=== PATIENT | female | born 1985 | race Two or more races ===

== ENCOUNTER 2017-11-13 17:39 | Emergency (ER) | payer MEDICAID, OTHER ==
[~2017-11-13] VITALS: Ht 154.9 cm; Wt 109.3 kg
[~2017-11-13 17:39] MED LIST: CEPH500C; NITR100C6; ONDANSETRON; PHENAZOPYRID
[2017-11-13 19:16] LABS: Basophils # (auto) 0.1 uL; Basophils % (auto) 0.8 % (0.0-2.0); Eosinophils # (auto) 0.1 uL; Eosinophils % (auto) 0.8 % (0.0-7.0); Hematocrit 37.6 % (36.0-46.0); Hemoglobin 12.4 g/dL (12.2-16.2); Lymphocytes # (auto) 2.5 uL; Lymphocytes % (auto) 22.2 % (10.0-50.0); Mean Corpuscular Hemoglobin 27.9 pg (28.0-32.0); Mean Corpuscular Hgb Conc. 32.9 g/dL (32.0-36.0); Mean Corpuscular Volume 84.8 fL (80.0-100.0); Neutrophils # (auto) 7.7 uL; Neutrophils % (auto) 67.2 % (37.0-80.0); Platelet Count (auto) 300 10^3/uL (140-450); Red Blood Cells 4.43 10^6/uL (4.0-5.20); Red Cell Distribution Width 14.6 % (11.8-14.3); White Blood Cell 11.5 10^3/uL (4.4-10.8)
[2017-11-13 19:25] LABS: Albumin 2.9 g/dL (3.4-5.0); BUN/Creatinine Ratio 16.9; Calcium 8.5 mg/dL (8.5-10.1); Potassium 3.7 mmol/L (3.5-5.1)
[2017-11-13 19:27] LABS: Bilirubin, Total 0.2 mg/dL (0.2-1.0); Total Protein 7.3 g/dL (6.4-8.2)
[2017-11-13 20:57] LABS: Urine Bacteria FEW /hpf (None Seen); Urine Blood Negative /uL (Negative); Urine Specific Gravity 1.012 (1.001-1.035); Urine WBC 1 /hpf (0 - 5)
[2017-11-14 04:46] VITALS: BP 122/77
== END 2017-11-14 01:20 | disposition left against medical advice (07) ==
LOC: ER 17:54
DX: O20.9 Hemorrhage in early pregnancy, unspecified (principal); Z3A.11 11 weeks gestation of pregnancy; Z53.21 Procedure and treatment not carried out due to patient leaving prior to being seen by health care provider
CPT/HCPCS: 36415; 76801; 80053; 81001; 84702; 85025

== ENCOUNTER 2020-02-21 14:27 | Inpatient (IN) | payer MEDICAID ==
[~2020-02-21] VITALS: Ht 165.1 cm; Wt 98.0 kg
[2020-02-21] MEDS ORDERED: ZINC SULFATE 220mg CAP or TAB PO ONE (14:45)
[2020-02-21] MEDS ORDERED: ASCORBIC ACID 500 MG TAB PO ONE (14:45)
[2020-02-21] MEDS ORDERED: PANTOPRAZOLE 40 MG/10 ML VIAL INJ IV ONE (14:45)
[2020-02-21] MEDS ORDERED: ACETAMINOPHEN 325 MG TAB PO ONE (14:45)
[2020-02-21] MEDS ORDERED: AZITHROMYCIN 500MG/ 250ML 250 ML IV ONE (14:45)
[2020-02-21] MEDS ORDERED: methylPREDNISolone SOD SUCC 125 MG/2 ML VL IV ONE (14:45)
[2020-02-21] MEDS ORDERED: ENOXAPARIN SOD 100 MG/1 ML SYRINGE SC ONE (15:00)
[2020-02-21 15:49] LABS: Albumin 3.3 g/dL (3.4-5.0); Anion Gap 9 (5-15); Blood Urea Nitrogen 8 mg/dL (7-18); Calcium 8.5 mg/dL (8.5-10.1); Carbon Dioxide 26 mmol/L (21-32); Chloride 97 mmol/L (98-107); Glucose 114 mg/dL (74-106); Potassium 3.7 mmol/L (3.5-5.1); Sodium 132 mmol/L (136-145)
[2020-02-21 15:51] LABS: Alanine Aminotransferase 76 U/L (13-56); Aspartate Aminotransferase 69 U/L (15-37); BUN/Creatinine Ratio 10.8; GFR African American 115 mL/min; GFR Non-African American 95 mL/min
[2020-02-21 15:59] LABS: Alkaline Phosphatase 66 U/L (45-117); Bilirubin, Total 0.5 mg/dL (0.2-1.0); Lactate Dehydrogenase 273 U/L (84-246); Total Protein 8.7 g/dL (6.4-8.2)
[2020-02-21] MEDS ORDERED: MORPHINE SULF INJ 2 MG/ML SYRINGE 1ML IV PRN ×3 (16:45→20:30)
[2020-02-21] MEDS ORDERED: NITROGLYCERIN 0.4 MG SL TAB SL PRN ×2 (16:45→20:30)
[2020-02-21 17:13] LABS: Basophils # (auto) 0 10 ^3/uL (0-0.2); Basophils % (auto) 0.2 % (0.0-2.0); Eosinophils # (auto) 0 10 ^3/uL (0-0.8); Lymphocytes # (auto) 1.5 10 ^3/uL (0.4-5.4); Monocytes # (auto) 0.5 10 ^3/uL (0-1.3); Neutrophils # (auto) 6.5 10 ^3/uL (1.6-8.6); Nucleated Red Blood Cells % 0.1 %
[2020-02-21 17:16] LABS: Hematocrit 41.6 % (36.0-46.0); Hemoglobin 13.5 g/dL (12.2-16.2); Lymphocytes % (auto) 18.2 % (10.0-50.0); Mean Corpuscular Hemoglobin 26.5 pg (28.0-32.0); Mean Corpuscular Hgb Conc. 32.5 g/dL (32.0-36.0); Mean Corpuscular Volume 81.4 fL (80.0-100.0); Neutrophils % (auto) 75.6 % (37.0-80.0); Platelet Count (auto) 226 10^3/uL (140-450); Red Blood Cells 5.11 10^6/uL (4.0-5.20); Red Cell Distribution Width 15.4 % (11.8-14.3); White Blood Cell 8.5 10^3/uL (4.4-10.8)
[2020-02-21] MEDS ORDERED: DEXTSYP31 OR (18:27)
[2020-02-21] MEDS ORDERED: DOXY-332 PO (18:27)
[2020-02-21] MEDS ORDERED: ALBU0.084 NEB (18:27)
[2020-02-21] MEDS ORDERED: IBUP800T24 PO (18:28)
[2020-02-21] MEDS ORDERED: PRED-158 PO (18:29)
[2020-02-21] MEDS ORDERED: SODIUM CHLORIDE 0.9% 1,000 ML IV SCH (20:28)
[2020-02-21] MEDS ORDERED: HYDROcodone-ACET 5/325MG TAB PO PRN (20:30)
[2020-02-21] MEDS ORDERED: ACETAMINOPHEN 500 MG TAB PO PRN (20:30)
[2020-02-21] MEDS ORDERED: ALUM & MAG HYDROX-SIMETH LIQ(MAALOX) 30 ML PO PRN (20:30)
[2020-02-21] MEDS ORDERED: DOCUSATE SOD 100 MG CAP PO PRN (20:30)
[2020-02-21 22:00] VITALS: BP 111/66
[2020-02-21] MEDS: ALBUTEROL SULF HFA 90MCG INH 200DOSE IN SCH (22:00)
[2020-02-21] MEDS: BUDESONIDE (INHALATION) 180 MCG IH IN SCH (22:00)
[2020-02-21 22:35] LABS: Basophils # (auto) 0 10 ^3/uL (0-0.2); Eosinophils # (auto) 0 10 ^3/uL (0-0.8); Monocytes # (auto) 0.2 10 ^3/uL (0-1.3); Neutrophils # (auto) 5.3 10 ^3/uL (1.6-8.6); Neutrophils % (auto) 82.3 % (37.0-80.0)
[2020-02-21 22:37] LABS: Basophils % (auto) 0.1 % (0.0-2.0); Hematocrit 41.9 % (36.0-46.0); Hemoglobin 13.7 g/dL (12.2-16.2); Lymphocytes % (auto) 14.7 % (10.0-50.0); Mean Corpuscular Hemoglobin 26.6 pg (28.0-32.0); Mean Corpuscular Hgb Conc. 32.6 g/dL (32.0-36.0); Mean Corpuscular Volume 81.7 fL (80.0-100.0); Monocytes % (auto) 2.9 % (0.0-12.0); Platelet Count (auto) 216 10^3/uL (140-450); Red Blood Cells 5.13 10^6/uL (4.0-5.20); Red Cell Distribution Width 15.3 % (11.8-14.3); White Blood Cell 6.5 10^3/uL (4.4-10.8)
[2020-02-21 22:52] LABS: Albumin 3.2 g/dL (3.4-5.0); Calcium 8.3 mg/dL (8.5-10.1); Cholesterol 79 mg/dL (< 200); Magnesium 2.7 mg/dL (1.6-2.6); Potassium 3.7 mmol/L (3.5-5.1)
[2020-02-21 22:56] LABS: HDL Cholesterol 27 mg/dL (40-59); LDL Cholesterol 46 mg/dL (< 100); Triglycerides 83 mg/dL (< 150)
[2020-02-21 23:02] LABS: BUN/Creatinine Ratio 14.7; Bilirubin, Total 0.4 mg/dL (0.2-1.0); CRP High Sensitivity 9.15 mg/dL (< 0.3); Total Protein 8.5 g/dL (6.4-8.2)
[2020-02-21] MEDS: DOXYCYCLINE 100MG/250ML 250 ML IV SCH (23:14)
[2020-02-22 03:29] VITALS: BP 111/66
[2020-02-22 05:00] VITALS: BP 119/72
[2020-02-22] MEDS ORDERED: FUROSEMIDE 20 MG/2 ML VIAL IV SCH (06:00)
[2020-02-22] MEDS: ALBUTEROL SULF HFA 90MCG INH 200DOSE IN SCH ×3 (07:09→22:00)
[2020-02-22 09:00] VITALS: BP 102/57
[2020-02-22 09:07] LABS: Basophils # (auto) 0 10 ^3/uL (0-0.2); Eosinophils # (auto) 0 10 ^3/uL (0-0.8); Hemoglobin 13.6 g/dL (12.2-16.2); Monocytes # (auto) 0.6 10 ^3/uL (0-1.3)
[2020-02-22 09:09] LABS: Basophils % (auto) 0.1 % (0.0-2.0); Hematocrit 42.2 % (36.0-46.0); Lymphocytes # (auto) 1.5 10 ^3/uL (0.4-5.4); Lymphocytes % (auto) 10.2 % (10.0-50.0); Mean Corpuscular Hemoglobin 26.5 pg (28.0-32.0); Mean Corpuscular Hgb Conc. 32.3 g/dL (32.0-36.0); Mean Corpuscular Volume 81.9 fL (80.0-100.0); Neutrophils # (auto) 12.7 10 ^3/uL (1.6-8.6); Neutrophils % (auto) 85.7 % (37.0-80.0); Platelet Count (auto) 249 10^3/uL (140-450); Red Blood Cells 5.15 10^6/uL (4.0-5.20); Red Cell Distribution Width 15.1 % (11.8-14.3); White Blood Cell 14.9 10^3/uL (4.4-10.8)
[2020-02-22 09:24] LABS: Potassium 3.3 mmol/L (3.5-5.1)
[2020-02-22 09:31] LABS: Albumin 3.2 g/dL (3.4-5.0); BUN/Creatinine Ratio 13.3; Bilirubin, Total 0.4 mg/dL (0.2-1.0); Calcium 8.4 mg/dL (8.5-10.1); Total Protein 8.5 g/dL (6.4-8.2)
[2020-02-22] MEDS ORDERED: ENOXAPARIN SOD 40 MG/0.4 ML SYRINGE SC SCH (10:00)
[2020-02-22] MEDS: BUDESONIDE (INHALATION) 180 MCG IH IN SCH ×2 (10:00→21:56)
[2020-02-22] MEDS: DOXYCYCLINE 100MG/250ML 250 ML IV SCH ×2 (10:28→21:46)
[2020-02-22] MEDS: ZINC SULFATE 220mg CAP or TAB PO SCH (10:29)
[2020-02-22] MEDS: CHOLECALCIFEROL (VITD3) 2,000 UNIT CAP PO SCH (10:29)
[2020-02-22] MEDS: ASCORBIC ACID 1,000 MG TAB PO SCH (10:29)
[2020-02-22] MEDS: DexAMETHasone SOD PHOS 10MG/1ML VIAL INJ IV SCH (10:30)
[2020-02-22] MEDS: ONDANSETRON HCL 4 MG/2 ML VIAL IV PRN (10:48)
[2020-02-22 13:00] VITALS: BP 99/47
[2020-02-22] MEDS ORDERED: POTASSIUM CHL 20 Meq TABLET PO ONE (13:30)
[2020-02-22] MEDS ORDERED: DEXTROSE (50%) 50ML SYRG IV PRN (13:30)
[2020-02-22] MEDS ORDERED: ENOXAPARIN SOD 60 MG/0.6 ML SYRINGE SC ONE (13:30)
[2020-02-22] MEDS: guaiFENesin-DM 100/10mg/5ml SYR PO PRN (16:14)
[2020-02-22 17:00] VITALS: BP 94/53
[2020-02-22] MEDS: ACCU-CHEK COMFORT CURVE STRIP VI SCH ×2 (17:00→21:46)
[2020-02-22] MEDS: InsuLIN REG 1unit/0.01ml Soln (100units/ml) SC SCH ×2 (17:31→21:47)
[2020-02-22] MEDS ORDERED: TEMAZEPAM 15 MG CAP PO ONE (21:15)
[2020-02-22] MEDS: ENOXAPARIN SOD 100 MG/1 ML SYRINGE SC SCH (21:46)
[2020-02-22 22:00] VITALS: BP 105/63
[2020-02-23 05:00] VITALS: BP 107/63
[2020-02-23] MEDS: InsuLIN REG 1unit/0.01ml Soln (100units/ml) SC SCH ×4 (07:00→21:19)
[2020-02-23] MEDS: ACCU-CHEK COMFORT CURVE STRIP VI SCH ×4 (07:01→21:19)
[2020-02-23] MEDS: ALBUTEROL SULF HFA 90MCG INH 200DOSE IN SCH ×3 (07:53→21:52)
[2020-02-23] MEDS: BUDESONIDE (INHALATION) 180 MCG IH IN SCH ×2 (07:53→21:52)
[2020-02-23 09:00] VITALS: BP 105/60
[2020-02-23] MEDS: DOXYCYCLINE 100MG/250ML 250 ML IV SCH ×2 (10:25→22:40)
[2020-02-23] MEDS: DexAMETHasone SOD PHOS 10MG/1ML VIAL INJ IV SCH (10:25)
[2020-02-23] MEDS: ASCORBIC ACID 1,000 MG TAB PO SCH (10:27)
[2020-02-23] MEDS: CHOLECALCIFEROL (VITD3) 2,000 UNIT CAP PO SCH (10:27)
[2020-02-23] MEDS: ZINC SULFATE 220mg CAP or TAB PO SCH (10:27)
[2020-02-23] MEDS: PANTOPRAZOLE 40 MG TAB PO SCH (10:27)
[2020-02-23] MEDS: POTASSIUM CHL 10 Meq TABLET PO SCH (10:27)
[2020-02-23] MEDS: FUROSEMIDE 20 MG/2 ML VIAL IV SCH (10:27)
[2020-02-23] MEDS: ENOXAPARIN SOD 100 MG/1 ML SYRINGE SC SCH ×2 (10:28→21:18)
[2020-02-23] MEDS: ACETAMINOPHEN 325 MG TAB PO PRN (10:39)
[2020-02-23] MEDS: ONDANSETRON HCL 4 MG/2 ML VIAL IV PRN (10:44)
[2020-02-23 13:00] VITALS: BP 92/50
[2020-02-23 17:00] VITALS: BP 109/68
[2020-02-23] MEDS: LORazepam 0.5 MG TAB PO PRN (21:19)
[2020-02-23 22:00] VITALS: BP 105/58
[2020-02-24 05:00] VITALS: BP 140/70
[2020-02-24] MEDS: ACCU-CHEK COMFORT CURVE STRIP VI SCH ×4 (06:34→21:59)
[2020-02-24] MEDS: InsuLIN REG 1unit/0.01ml Soln (100units/ml) SC SCH ×4 (06:34→22:13)
[2020-02-24] MEDS: ONDANSETRON HCL 4 MG/2 ML VIAL IV PRN (06:34)
[2020-02-24] MEDS: ALBUTEROL SULF HFA 90MCG INH 200DOSE IN SCH ×3 (06:39→21:23)
[2020-02-24] MEDS: BUDESONIDE (INHALATION) 180 MCG IH IN SCH ×2 (06:39→21:22)
[2020-02-24] MEDS: ACETAMINOPHEN 325 MG TAB PO PRN (07:24)
[2020-02-24 09:05] LABS: Urine Bacteria FEW /hpf (None Seen); Urine Blood 1+ /uL (Negative); Urine Specific Gravity 1.026 (1.001-1.035); Urine WBC 58 /hpf (0 - 5)
[2020-02-24 09:07] VITALS: BP 123/70
[2020-02-24 09:07] LABS: Amphetamine Screen, Urine NEGATIVE (NEGATIVE); Barbiturate Scree,Urine POSITIVE (NEGATIVE); Benzodiazephine Screen, Urine NEGATIVE (NEGATIVE); Cannabinoid Screen, Urine NEGATIVE (NEGATIVE); Cocaine Screen, Urine NEGATIVE (NEGATIVE); Opiate Scree,Urine NEGATIVE (NEGATIVE); Phencyclidine Screen, Urine NEGATIVE (NEGATIVE)
[2020-02-24] MEDS: POTASSIUM CHL 10 Meq TABLET PO SCH (10:34)
[2020-02-24] MEDS: DexAMETHasone SOD PHOS 10MG/1ML VIAL INJ IV SCH (10:34)
[2020-02-24] MEDS: CHOLECALCIFEROL (VITD3) 2,000 UNIT CAP PO SCH (10:35)
[2020-02-24] MEDS: PANTOPRAZOLE 40 MG TAB PO SCH (10:35)
[2020-02-24] MEDS: ENOXAPARIN SOD 100 MG/1 ML SYRINGE SC SCH ×2 (10:35→21:41)
[2020-02-24] MEDS: ASCORBIC ACID 1,000 MG TAB PO SCH (10:36)
[2020-02-24] MEDS: DOXYCYCLINE 100MG/250ML 250 ML IV SCH (10:36)
[2020-02-24] MEDS: ZINC SULFATE 220mg CAP or TAB PO SCH (10:36)
[2020-02-24] MEDS: FUROSEMIDE 20 MG/2 ML VIAL IV SCH (10:37)
[2020-02-24] MEDS ORDERED: FUROSEMIDE 20 MG/2 ML VIAL IV ONE (12:30)
[2020-02-24] MEDS ORDERED: POTASSIUM CHL 10 Meq TABLET PO ONE (12:30)
[2020-02-24] MEDS ORDERED: MEROPENEM 1GM IVPB 100 ML IV ONE (12:30)
[2020-02-24 13:00] VITALS: BP 93/58
[2020-02-24] MEDS: HYDROcodone-ACET 5/325MG TAB PO PRN (15:40)
[2020-02-24 16:23] VITALS: BP 104/56
[2020-02-24] MEDS: MEROPENEM 1GM IVPB 100 ML IV SCH (21:40)
[2020-02-24 22:00] VITALS: BP 96/47
[2020-02-24 22:10] VITALS: BP 104/56
[2020-02-25] VITALS (7 sets, daily range): BP systolic 91–115; BP diastolic 48–72
[2020-02-25] MEDS: ONDANSETRON HCL 4 MG/2 ML VIAL IV PRN (04:22)
[2020-02-25] MEDS: MEROPENEM 1GM IVPB 100 ML IV SCH ×3 (05:52→22:12)
[2020-02-25] MEDS: InsuLIN REG 1unit/0.01ml Soln (100units/ml) SC SCH ×4 (06:19→22:00)
[2020-02-25] MEDS: ACCU-CHEK COMFORT CURVE STRIP VI SCH ×4 (06:19→22:05)
[2020-02-25] MEDS: BUDESONIDE (INHALATION) 180 MCG IH IN SCH ×2 (06:50→22:25)
[2020-02-25] MEDS: ALBUTEROL SULF HFA 90MCG INH 200DOSE IN SCH ×3 (06:50→22:25)
[2020-02-25 07:06] LABS: Calcium 8.7 mg/dL (8.5-10.1); Potassium 4.1 mmol/L (3.5-5.1)
[2020-02-25 07:07] LABS: Basophils # (auto) 0 10 ^3/uL (0-0.2); Basophils % (auto) 0.2 % (0.0-2.0); Eosinophils # (auto) 0 10 ^3/uL (0-0.8); Eosinophils % (auto) 0.1 % (0.0-7.0); Hematocrit 40.4 % (36.0-46.0); Hemoglobin 13.5 g/dL (12.2-16.2); Lymphocytes # (auto) 1.7 10 ^3/uL (0.4-5.4); Lymphocytes % (auto) 15.9 % (10.0-50.0); Mean Corpuscular Hgb Conc. 33.3 g/dL (32.0-36.0); Monocytes # (auto) 0.8 10 ^3/uL (0-1.3); Monocytes % (auto) 7.2 % (0.0-12.0); Neutrophils # (auto) 8.2 10 ^3/uL (1.6-8.6); Neutrophils % (auto) 76.6 % (37.0-80.0); Nucleated Red Blood Cells % 0.2 %; Platelet Count (auto) 349 10^3/uL (140-450); Red Blood Cells 4.99 10^6/uL (4.0-5.20); Red Cell Distribution Width 15.1 % (11.8-14.3); White Blood Cell 10.7 10^3/uL (4.4-10.8)
[2020-02-25 07:12] LABS: Albumin 2.8 g/dL (3.4-5.0); BUN/Creatinine Ratio 23.3; Bilirubin, Total 0.6 mg/dL (0.2-1.0); Phosphorus 3.4 mg/dL (2.5-4.90); Total Protein 8.5 g/dL (6.4-8.2)
[2020-02-25] MEDS: FUROSEMIDE 20 MG/2 ML VIAL IV SCH (10:00)
[2020-02-25] MEDS: ENOXAPARIN SOD 100 MG/1 ML SYRINGE SC SCH ×2 (10:16→22:12)
[2020-02-25] MEDS: POTASSIUM CHL 10 Meq TABLET PO SCH (10:16)
[2020-02-25] MEDS: PANTOPRAZOLE 40 MG TAB PO SCH (10:16)
[2020-02-25] MEDS: CHOLECALCIFEROL (VITD3) 2,000 UNIT CAP PO SCH (10:16)
[2020-02-25] MEDS: ZINC SULFATE 220mg CAP or TAB PO SCH (10:16)
[2020-02-25] MEDS: ASCORBIC ACID 1,000 MG TAB PO SCH (10:16)
[2020-02-25] MEDS: DexAMETHasone SOD PHOS 10MG/1ML VIAL INJ IV SCH (10:16)
[2020-02-25] MEDS ORDERED: REMDESIVIR 200 MG in NS 210ml LOADING DOSE ADULT IV ONE (16:00)
[2020-02-26 00:28] VITALS: BP 102/56
[2020-02-26] MEDS: ONDANSETRON HCL 4 MG/2 ML VIAL IV PRN ×3 (01:43→12:49)
[2020-02-26] MEDS: MEROPENEM 1GM IVPB 100 ML IV SCH ×3 (05:27→21:48)
[2020-02-26 06:00] VITALS: BP 105/71
[2020-02-26] MEDS: ACCU-CHEK COMFORT CURVE STRIP VI SCH ×4 (06:58→21:40)
[2020-02-26] MEDS: InsuLIN REG 1unit/0.01ml Soln (100units/ml) SC SCH ×4 (06:58→21:58)
[2020-02-26] MEDS: ALBUTEROL SULF HFA 90MCG INH 200DOSE IN SCH ×3 (08:02→21:45)
[2020-02-26] MEDS: BUDESONIDE (INHALATION) 180 MCG IH IN SCH ×2 (08:02→21:45)
[2020-02-26 09:00] VITALS: BP 102/61
[2020-02-26] MEDS: PANTOPRAZOLE 40 MG TAB PO SCH (09:59)
[2020-02-26] MEDS: ASCORBIC ACID 1,000 MG TAB PO SCH (09:59)
[2020-02-26] MEDS: CHOLECALCIFEROL (VITD3) 2,000 UNIT CAP PO SCH (09:59)
[2020-02-26] MEDS ORDERED: REMDESIVIR 100mg in NS 230ml DAILYx4DAYS (NO VENT) IV SCH (10:00)
[2020-02-26] MEDS: POTASSIUM CHL 10 Meq TABLET PO SCH (10:00)
[2020-02-26] MEDS: ZINC SULFATE 220mg CAP or TAB PO SCH (10:00)
[2020-02-26] MEDS: DexAMETHasone SOD PHOS 10MG/1ML VIAL INJ IV SCH (10:53)
[2020-02-26] MEDS: FUROSEMIDE 20 MG/2 ML VIAL IV SCH (10:54)
[2020-02-26] MEDS: ENOXAPARIN SOD 100 MG/1 ML SYRINGE SC SCH ×2 (10:54→21:46)
[2020-02-26 13:00] VITALS: BP 87/54
[2020-02-26] MEDS ORDERED: METOCLOPRAMIDE HCL 5MG/ml INJ 2ml VIAL IV ONE (15:45)
[2020-02-26 17:00] VITALS: BP 93/51
[2020-02-26] MEDS: METOCLOPRAMIDE HCL 5MG/ml INJ 2ml VIAL IV SCH ×2 (17:43→23:45)
[2020-02-26] MEDS: REMDESIVIR 100mg in NS 230ml DAILYx4DAYS (NO VENT) IV SCH (18:19)
[2020-02-26] MEDS: LORazepam 0.5 MG TAB PO PRN (21:47)
[2020-02-26 22:00] VITALS: BP 96/47
[2020-02-27] VITALS (7 sets, daily range): BP systolic 92–129; BP diastolic 52–71
[2020-02-27] MEDS: ONDANSETRON HCL 4 MG/2 ML VIAL IV PRN ×2 (04:27→09:35)
[2020-02-27] MEDS: MEROPENEM 1GM IVPB 100 ML IV SCH ×3 (06:11→22:21)
[2020-02-27] MEDS: METOCLOPRAMIDE HCL 5MG/ml INJ 2ml VIAL IV SCH ×4 (06:11→23:46)
[2020-02-27] MEDS: ACCU-CHEK COMFORT CURVE STRIP VI SCH ×4 (06:11→22:21)
[2020-02-27] MEDS: InsuLIN REG 1unit/0.01ml Soln (100units/ml) SC SCH ×4 (06:12→22:00)
[2020-02-27] MEDS: LORazepam 0.5 MG TAB PO PRN ×3 (06:39→18:06)
[2020-02-27 08:39] LABS: Calcium 8.8 mg/dL (8.5-10.1); Potassium 4.2 mmol/L (3.5-5.1)
[2020-02-27 08:43] LABS: Albumin 2.9 g/dL (3.4-5.0); BUN/Creatinine Ratio 32.3; Bilirubin, Total 0.5 mg/dL (0.2-1.0); Total Protein 7.7 g/dL (6.4-8.2)
[2020-02-27] MEDS: ASCORBIC ACID 1,000 MG TAB PO SCH (09:22)
[2020-02-27] MEDS: PANTOPRAZOLE 40 MG TAB PO SCH (09:22)
[2020-02-27] MEDS: CHOLECALCIFEROL (VITD3) 2,000 UNIT CAP PO SCH (09:23)
[2020-02-27] MEDS: ZINC SULFATE 220mg CAP or TAB PO SCH (09:23)
[2020-02-27] MEDS: DexAMETHasone SOD PHOS 10MG/1ML VIAL INJ IV SCH (09:24)
[2020-02-27] MEDS: FUROSEMIDE 20 MG/2 ML VIAL IV SCH (09:24)
[2020-02-27] MEDS: POTASSIUM CHL 10 Meq TABLET PO SCH (09:24)
[2020-02-27] MEDS: ENOXAPARIN SOD 100 MG/1 ML SYRINGE SC SCH ×2 (09:24→22:21)
[2020-02-27] MEDS: HYDROcodone-ACET 5/325MG TAB PO PRN ×2 (12:59→16:52)
[2020-02-27] MEDS: ALBUTEROL SULF HFA 90MCG INH 200DOSE IN SCH ×3 (14:00→21:28)
[2020-02-27] MEDS: BUDESONIDE (INHALATION) 180 MCG IH IN SCH ×2 (16:39→21:28)
[2020-02-27] MEDS: REMDESIVIR 100mg in NS 230ml DAILYx4DAYS (NO VENT) IV SCH (16:49)
[2020-02-27] MEDS: TEMAZEPAM 15 MG CAP PO PRN (22:22)
[2020-02-28 05:00] VITALS: BP 93/46
[2020-02-28] MEDS: ACCU-CHEK COMFORT CURVE STRIP VI SCH ×4 (06:50→21:36)
[2020-02-28] MEDS: InsuLIN REG 1unit/0.01ml Soln (100units/ml) SC SCH ×4 (06:51→21:35)
[2020-02-28] MEDS: MEROPENEM 1GM IVPB 100 ML IV SCH ×3 (06:57→21:36)
[2020-02-28] MEDS: METOCLOPRAMIDE HCL 5MG/ml INJ 2ml VIAL IV SCH ×4 (06:58→23:37)
[2020-02-28] MEDS: LORazepam 0.5 MG TAB PO PRN (06:58)
[2020-02-28] MEDS: ALBUTEROL SULF HFA 90MCG INH 200DOSE IN SCH ×3 (07:04→22:23)
[2020-02-28] MEDS: BUDESONIDE (INHALATION) 180 MCG IH IN SCH ×2 (07:05→22:23)
[2020-02-28 09:00] VITALS: BP 98/55
[2020-02-28] MEDS: DexAMETHasone SOD PHOS 10MG/1ML VIAL INJ IV SCH (09:44)
[2020-02-28] MEDS: ZINC SULFATE 220mg CAP or TAB PO SCH (09:46)
[2020-02-28] MEDS: FUROSEMIDE 20 MG/2 ML VIAL IV SCH (09:46)
[2020-02-28] MEDS: ASCORBIC ACID 1,000 MG TAB PO SCH (09:47)
[2020-02-28] MEDS: CHOLECALCIFEROL (VITD3) 2,000 UNIT CAP PO SCH (09:47)
[2020-02-28] MEDS: PANTOPRAZOLE 40 MG TAB PO SCH (09:47)
[2020-02-28] MEDS: ENOXAPARIN SOD 100 MG/1 ML SYRINGE SC SCH ×2 (09:47→21:36)
[2020-02-28] MEDS: POTASSIUM CHL 10 Meq TABLET PO SCH (09:47)
[2020-02-28 13:00] VITALS: BP 93/54
[2020-02-28] MEDS: HYDROcodone-ACET 5/325MG TAB PO PRN (14:16)
[2020-02-28] MEDS: REMDESIVIR 100mg in NS 230ml DAILYx4DAYS (NO VENT) IV SCH (16:55)
[2020-02-28 17:00] VITALS: BP 96/58
[2020-02-28 20:00] VITALS: BP 98/67
[2020-02-28] MEDS: TEMAZEPAM 15 MG CAP PO PRN (21:36)
[2020-02-28 22:00] VITALS: BP 98/67
[2020-02-29 05:14] VITALS: BP 99/58
[2020-02-29] MEDS: InsuLIN REG 1unit/0.01ml Soln (100units/ml) SC SCH ×3 (06:08→17:21)
[2020-02-29] MEDS: METOCLOPRAMIDE HCL 5MG/ml INJ 2ml VIAL IV SCH ×3 (06:08→18:00)
[2020-02-29] MEDS: ACCU-CHEK COMFORT CURVE STRIP VI SCH ×3 (06:08→17:14)
[2020-02-29] MEDS: MEROPENEM 1GM IVPB 100 ML IV SCH ×2 (06:08→14:30)
[2020-02-29] MEDS: guaiFENesin-DM 100/10mg/5ml SYR PO PRN (06:25)
[2020-02-29] MEDS: ALBUTEROL SULF HFA 90MCG INH 200DOSE IN SCH ×2 (06:33→14:37)
[2020-02-29] MEDS: BUDESONIDE (INHALATION) 180 MCG IH IN SCH (06:33)
[2020-02-29 08:19] LABS: CRP High Sensitivity 0.77 mg/dL (< 0.3)
[2020-02-29 09:24] VITALS: BP 101/64
[2020-02-29] MEDS: DexAMETHasone SOD PHOS 10MG/1ML VIAL INJ IV SCH (09:49)
[2020-02-29] MEDS: ZINC SULFATE 220mg CAP or TAB PO SCH (09:49)
[2020-02-29] MEDS: CHOLECALCIFEROL (VITD3) 2,000 UNIT CAP PO SCH (09:50)
[2020-02-29] MEDS: ENOXAPARIN SOD 100 MG/1 ML SYRINGE SC SCH (09:50)
[2020-02-29] MEDS: PANTOPRAZOLE 40 MG TAB PO SCH (09:50)
[2020-02-29] MEDS: ASCORBIC ACID 1,000 MG TAB PO SCH (09:50)
[2020-02-29] MEDS ORDERED: ZINC220T6 PO (10:56)
[2020-02-29] MEDS ORDERED: ASCO10003 PO (10:56)
[2020-02-29] MEDS ORDERED: METH4PAK PO (10:56)
[2020-02-29] MEDS ORDERED: DOXY-286 PO (10:56)
[2020-02-29] MEDS ORDERED: PANT40T PO (10:56)
[2020-02-29 13:03] VITALS: BP 92/56
[2020-02-29 14:55] VITALS: BP 92/56
[2020-02-29] MEDS: REMDESIVIR 100mg in NS 230ml DAILYx4DAYS (NO VENT) IV SCH (17:00)
[2020-02-29 17:27] VITALS: BP 105/68
== END 2020-02-29 20:05 | disposition home or self-care (01) | DRG 720 ==
LOC: EDBD 14:27 → ER 14:27 → TELE 14:28 → TELE-E-ADS 21:18
PROVIDERS: ADMIT Hospitalist; ATTEND Internal Medicine
PROC: 30233K1 Transfusion of Nonautologous Frozen Plasma into Peripheral Vein, Percutaneous Approach (ICD-10-PCS; principal; 2020-02-25)
PROC: XW13325 Transfusion of Convalescent Plasma (Nonautologous) into Peripheral Vein, Percutaneous Approach, New Technology Group 5 (ICD-10-PCS; 2020-02-25)
PROC: XW033E5 Introduction of Remdesivir Anti-infective into Peripheral Vein, Percutaneous Approach, New Technology Group 5 (ICD-10-PCS; 2020-02-25)
DX: A41.89 Other specified sepsis (principal); U07.1 COVID-19; J12.89 Other viral pneumonia; J96.01 Acute respiratory failure with hypoxia; E66.01 Morbid (severe) obesity due to excess calories; J45.901 Unspecified asthma with (acute) exacerbation; E11.9 Type 2 diabetes mellitus without complications; E87.6 Hypokalemia; Z68.36 Body mass index [BMI] 36.0-36.9, adult; Z83.3 Family history of diabetes mellitus; Z82.49 Family history of ischemic heart disease and other diseases of the circulatory system
CPT/HCPCS: 36415; 71045; 80053; 80061; 80307; 81001; 82728; 82962; 83036; 83605; 83615; 83735; 84100; 84132; 84443; 84484; 85025; 85379; 86141; 86850; 86900; 86901; 87040; 87086; 94640; 96365; 96366; 96372; 96375; 97163; 99291; C9113; G0378; J1100; J1815; J2185; J2405; J3490

== ENCOUNTER 2020-11-20 11:31 | Emergency (ER) | payer MEDICAID ==
[~2020-11-20] VITALS: Ht 154.9 cm; Wt 110.2 kg
[~2020-11-20 11:31] MED LIST changes: +ALBU0.084 NEB; +ASCO10003 PO; -CEPH500C; +DEXTSYP31 OR; +DOXY-286 PO; +DOXY-332 PO; +IBUP800T26 PO; +METH4PAK PO; -NITR100C6; -ONDANSETRON; +PANT40T PO; -PHENAZOPYRID; +PRED10TA PO; +ZINC220T6 PO
[2020-11-20] MEDS ORDERED: ONDANSETRON HCL 4 MG/2 ML VIAL IV ONE (11:45)
[2020-11-20] MEDS ORDERED: MORPHINE SULFATE 4 MG/ML SYR/VIAL IV ONE (11:45)
[2020-11-20] MEDS ORDERED: SODIUM CHLORIDE 0.9% 500 ML IV ONE (11:45)
[2020-11-20 12:32] LABS: Basophils # (auto) 0 10 ^3/uL (0-0.2); Basophils % (auto) 0.3 % (0.0-2.0); Eosinophils # (auto) 0.1 10 ^3/uL (0-0.8); Eosinophils % (auto) 0.8 % (0.0-7.0); Hemoglobin 12.3 g/dL (12.2-16.2); Lymphocytes # (auto) 3.1 10 ^3/uL (0.4-5.4); Lymphocytes % (auto) 25.8 % (10.0-50.0); Mean Corpuscular Hgb Conc. 33.1 g/dL (32.0-36.0); Mean Corpuscular Volume 84.5 fL (80.0-100.0); Monocytes # (auto) 0.7 10 ^3/uL (0-1.3); Monocytes % (auto) 6.1 % (0.0-12.0); Neutrophils # (auto) 8.2 10 ^3/uL (1.6-8.6); Platelet Count (auto) 293 10^3/uL (140-450); Red Blood Cells 4.38 10^6/uL (4.0-5.20); Red Cell Distribution Width 14.6 % (11.8-14.3); White Blood Cell 12.2 10^3/uL (4.4-10.8)
[2020-11-20 12:49] LABS: INR 0.96 (0.9-1.15); Partial Thromboplastin Time 27.1 sec (23.0-31.2)
[2020-11-20 12:58] LABS: Albumin 2.7 g/dL (3.4-5.0); Calcium 8.5 mg/dL (8.5-10.1)
[2020-11-20] MEDS ORDERED: LIDOCAINE 2%HCL (LOCAL ANESTH.) INJ 20ML MDV ONE (13:00)
[2020-11-20 13:02] LABS: BUN/Creatinine Ratio 35.1; Bilirubin, Total 0.2 mg/dL (0.2-1.0); Total Protein 6.6 g/dL (6.4-8.2)
[2020-11-20 15:14] VITALS: BP 129/79
== END 2020-11-20 16:39 | disposition left against medical advice (07) ==
LOC: ER 11:31
DX: M54.2 Cervicalgia (principal); R51.9 Headache, unspecified; J45.909 Unspecified asthma, uncomplicated; Z90.49 Acquired absence of other specified parts of digestive tract; Z88.0 Allergy status to penicillin
CPT/HCPCS: 36415; 70450; 80053; 85025; 85610; 85730; 96361; 96374; 96375; 99284; J2270; J2405; J7030

== ENCOUNTER 2024-09-10 15:08 | Emergency (ER) | payer MEDICAID ==
[~2024-09-10] VITALS: Ht 154.9 cm; Wt 75.0 kg
[~2024-09-10 15:08] MED LIST changes: -DOXY-332 PO; +DOXY100C79 PO; +IBUP-1455 PO; -IBUP800T26 PO
[2024-09-10 15:49] VITALS: BP 132/78; PULSE 87; RESP 18; TEMP 98.2; O2SAT 100
[2024-09-10] MEDS: KETOROLAC TROMETH 60MG/2ML VIAL IM ONE (16:02)
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
[2024-09-10] MEDS ORDERED: METH-1182 PO (17:10)
[2024-09-10] MEDS ORDERED: IBUP-1456 PO (17:10)
== END 2024-09-10 17:18 | disposition home or self-care (01) ==
LOC: ER 15:08 → EDBD 15:08 → ER 17:17
DX: S16.1XXA Strain of muscle, fascia and tendon at neck level, initial encounter (principal); S39.012A Strain of muscle, fascia and tendon of lower back, initial encounter; J45.909 Unspecified asthma, uncomplicated; Z79.1 Long term (current) use of non-steroidal anti-inflammatories (NSAID); Z79.899 Other long term (current) drug therapy; Z88.0 Allergy status to penicillin; Z90.49 Acquired absence of other specified parts of digestive tract; V43.62XA Car passenger injured in collision with other type car in traffic accident, initial encounter; Y93.89 Activity, other specified; Y92.488 Other paved roadways as the place of occurrence of the external cause; Y99.8 Other external cause status
CPT/HCPCS: 72040; 72100; 72220; 96372; 99284; J1885